=== PATIENT | female | born 1995 | race Two or more races ===

== ENCOUNTER 2016-10-23 17:21 | Emergency (ER) | payer MEDICAID ==
[~2016-10-23] VITALS: Ht 157.5 cm; Wt 77.0 kg
[2016-10-23] MEDS ORDERED: SODIUM CHLORIDE FLUSH 10ML SYR IVF ONE (18:00)
[2016-10-23] MEDS ORDERED: SODIUM CHLORIDE 0.9% 1,000ML IVBOLUS ONE (18:00)
[2016-10-23 18:22] LABS: HEMATOCRIT 37.1 % (34.6-47.8); HEMOGLOBIN 12.2 g/dL (11.7-16.4)
[2016-10-23 18:35] LABS: BLOOD UREA NITROGEN 9 mg/dL (7-18)
[2016-10-23] MEDS ORDERED: CEFAZOLIN PMX 1GM/50ML 50 ML ONE (19:57)
[2016-10-23] MEDS ORDERED: VANCOMYCIN PER PHARMACY MC PRN (20:00)
[2016-10-23] MEDS ORDERED: CEFAZOLIN PMX 1GM/50ML 50 ML IV ONE (20:00)
[2016-10-23] MEDS ORDERED: PHARMACOKINETIC CONSULTATION MC ONE (20:00)
[2016-10-23] MEDS ORDERED: VANCOMYCIN 1,500 MG in SODIUM CHLORIDE 0.9% 250 ML IV ONE (20:00)
[2016-10-23] MEDS ORDERED: BIRTH CONTROL (20:38)
[2016-10-23] MEDS ORDERED: PIPERACILLIN/TAZO/PMX 3.375GM 50 ML IV ONE (21:00)
[2016-10-23] MEDS ORDERED: PIPERACILLIN/TAZO/PMX 3.375GM 50 ML ONE (21:05)
[2016-10-23 22:13] VITALS: BP 115/75
== END 2016-10-23 22:38 | disposition home or self-care (01) ==
LOC: ED 19:48
DX: L03.116 Cellulitis of left lower limb (principal)
CPT/HCPCS: 36415; 73552; 73701; 80048; 82040; 83605; 84703; 85025; 87040; 96365; 96367; 99285; J0690; J2543; J7030

== ENCOUNTER 2016-10-24 14:42 | Emergency (ER) | payer MEDICAID ==
[~2016-10-24] VITALS: Ht 157.5 cm; Wt 78.2 kg
[~2016-10-24 14:42] MED LIST: BIRTH CONTROL; OMNIPAQUE 350 MG/ML, 100ML BOTTLE ONE
[2016-10-24 14:45] VITALS: BP 137/89
[2016-10-24] MEDS ORDERED: BACITRACIN ZINC OINT 500U/GM, 0.9 GM ONE (15:22)
== END 2016-10-24 15:45 | disposition home or self-care (01) ==
LOC: ED 15:40
DX: S71.132A Puncture wound without foreign body, left thigh, initial encounter (principal); L03.116 Cellulitis of left lower limb; W22.8XXA Striking against or struck by other objects, initial encounter; Y93.19 Activity, other involving water and watercraft; Y92.838 Other recreation area as the place of occurrence of the external cause; Y99.8 Other external cause status
CPT/HCPCS: 99281; Q9967

== ENCOUNTER 2016-11-14 16:31 | Emergency (ER) | payer MEDICAID ==
[~2016-11-14] VITALS: Ht 157.5 cm; Wt 74.1 kg
[~2016-11-14 16:31] MED LIST changes: -OMNIPAQUE 350 MG/ML, 100ML BOTTLE ONE
[2016-11-14 16:54] VITALS: BP 114/76
== END 2016-11-14 18:02 | disposition home or self-care (01) ==
LOC: ED 17:30
DX: S76.912A Strain of unspecified muscles, fascia and tendons at thigh level, left thigh, initial encounter (principal); S71.132A Puncture wound without foreign body, left thigh, initial encounter; W19.XXXA Unspecified fall, initial encounter; Y93.89 Activity, other specified; Y92.89 Other specified places as the place of occurrence of the external cause; Y99.8 Other external cause status
CPT/HCPCS: 99283